=== PATIENT | female | born 1980 | race Caucasian/White ===

== ENCOUNTER → 2017-07-02 18:32 | Outpatient (CLI) | payer OTHER, SELFPAY ==
[2017-07-06 13:17] LABS: HPV Reflexed? NOT INDICATED
== END ==
PROVIDERS: Family Provider Nurse Practitioner Primary Care; PCP Nurse Practitioner Primary Care; Visit Provider Obstetrics & Gynecology
DX: Z12.4 Encounter for screening for malignant neoplasm of cervix (principal)
CPT/HCPCS: 88175; G0145

== ENCOUNTER → 2018-08-14 | Outpatient (CLI) | payer OTHER, SELFPAY ==
[2018-08-20 16:03] LABS: HPV HC, High Risk Negative (Negative)
== END | disposition home or self-care (01) ==
LOC: LABSPEC 10:40
PROVIDERS: Visit Provider Obstetrics & Gynecology
DX: Z12.4 Encounter for screening for malignant neoplasm of cervix (principal)
CPT/HCPCS: 87624; 88175; G0145

== ENCOUNTER → 2018-09-04 | Outpatient (CLI) | payer OTHER, SELFPAY ==
--- NOTE | 2018-09-04 15:54 | BI_ITS ---
MAMMOGRAPHY - BILATERAL SCREENING REASON FOR EXAM: Female, 38 years old. Routine annual screening examination. PERTINENT HISTORY: Non-contributory. TECHNIQUE: Digital bilateral breast altagracia (3D mammographic acquisition) in the CC and MLO projections. 2-D mediolateral oblique (MLO) and craniocaudad (CC) views of both breasts were obtained. CAD: Full Field Digital Mammography with Computer Added Detection was performed. COMPARISON: Comparison is made with prior examination dated October 22, 2013. FINDINGS: Breast Composition: The breasts are heterogeneously dense, which may obscure small masses. There are no dominant masses or suspicious calcifications. No other significant abnormalities are identified. There has been no significant change since the prior study. BI/SCREEN MAMM (CAD) W/ALTAGRACIA BILAT IMPRESSION: Stable bilateral screening mammogram. Yearly follow-up mammogram recommended. (A) ASSESSMENT CATEGORY: BIRADS Category 1: Negative. A letter regarding these results will be sent to the patient by the facility within 30 days. Approximately 10% of breast cancers are not detected by mammography. A normal mammogram should not delay biopsy of a clinically suspicious abnormality. [id number] Electronically Signed: Darius Marshall, at 8:42 EDT , Service support ,
== END | disposition home or self-care (01) ==
LOC: OPBI 15:52
PROVIDERS: Family Provider Nurse Practitioner Primary Care; PCP Nurse Practitioner Primary Care; Referring Provider Obstetrics & Gynecology; Visit Provider Obstetrics & Gynecology
DX: Z12.31 Encounter for screening mammogram for malignant neoplasm of breast (principal)
CPT/HCPCS: 77063; 77067

== ENCOUNTER → 2019-09-17 14:12 | Outpatient (CLI) | payer OTHER, SELFPAY ==
[2019-09-17 17:13] LABS: Chlamydia Trachomatis by PCR Negative (Negative); Neisserai gonorrhoeae by PCR Negative (Negative); Probe Check PASS; Sample Adequacy Control PASS; Specimen Processing Control PASS
[2019-09-24 00:41] LABS: HPV APTIMA, High Risk Negative (Negative); HPV Reflexed? NOT INDICATED
== END ==
PROVIDERS: PCP Nurse Practitioner Primary Care; Visit Provider Obstetrics & Gynecology
DX: Z12.4 Encounter for screening for malignant neoplasm of cervix (principal); Z11.3 Encounter for screening for infections with a predominantly sexual mode of transmission
CPT/HCPCS: 87491; 87591; 88175; G0145

== ENCOUNTER → 2019-11-19 14:11 | Outpatient (CLI) | payer OTHER, SELFPAY ==
--- NOTE | 2019-11-19 14:55 | BI_ITS ---
MAMMOGRAPHY - BILATERAL SCREENING REASON FOR EXAM: Female, 39 years old. Routine annual screening examination. PERTINENT HISTORY: Non-contributory. TECHNIQUE: Digital bilateral breast altagracia (3D mammographic acquisition) in the CC and MLO projections. 2-D mediolateral oblique (MLO) and craniocaudad (CC) views of both breasts were obtained. CAD: Full Field Digital Mammography with Computer Added Detection was performed. COMPARISON: Comparison is made with prior study dated 09/04/2018. FINDINGS: Breast Composition: The breasts are heterogeneously dense, which may obscure small masses. There are no dominant masses or suspicious calcifications. No other significant abnormalities are identified. There has been no significant change since the prior study. BI/SCREEN MAMM (CAD) W/ALTAGRACIA BILAT IMPRESSION: Stable bilateral screening mammogram. Yearly follow-up mammogram recommended. (A) ASSESSMENT CATEGORY: BIRADS Category 1: Negative. A letter regarding these results will be sent to the patient by the facility within 30 days. Approximately 10% of breast cancers are not detected by mammography. A normal mammogram should not delay biopsy of a clinically suspicious abnormality. [id number] Electronically Signed: Darius Marshall, at 8:51 EDT , Service support ,
== END ==
PROVIDERS: PCP Nurse Practitioner Primary Care; Referring Provider Obstetrics & Gynecology; Visit Provider Obstetrics & Gynecology
DX: Z12.31 Encounter for screening mammogram for malignant neoplasm of breast (principal)
CPT/HCPCS: 77063; 77067

== ENCOUNTER 2020-09-08 12:17 | Emergency (ER) | payer OTHER, SELFPAY ==
[2020-09-08 12:17] VITALS: BP 147/82; PULSE 90; RESP 18; TEMP 36.6; O2SAT 99; BMI 25.8
--- NOTE | 2020-09-08 14:30 | VDLE_ITS ---
Reason For Study: Pain Procedure LEFT This is a venous duplex using B-mode, color GSV is normal. flow and spectral Doppler. CFV is compressible, spontaneous, phasic, Exam performed portable in ED. competent, and demonstrates normal A preliminary report was called and/or faxed augmentation. to [facility]. FV is compressible, spontaneous, phasic, competent and demonstrates normal augmentation. POP V is compressible, spontaneous, phasic, competent and demonstrates normal augmentation. T/P Trunk is compressible. PTV is compressible. LT PerV is compressible. VL/Venous Duplex US, Unilateral Interpretation Summary There is no evidence of left lower extremity deep vein thrombosis. Left great s aphenous vein appears patent and compressible segmentally. Ordering Physician: Rogelio Stephenson Referring Physician: Stephanie Harley Performed By: Letty Wyatt RVT
--- NOTE | 2020-09-08 14:47 | EDS_ITS ---
HPI History of Present Illness Chief Complaint: Lower Extremity Injury Informant: patient Narrative Narrative: 40-year-old female presents for the evaluation of left calf pain. Patient states that she noticed some pain behind her knee/proximal calf the past couple of days. She notes that yesterday the knee seems stiffer going upstairs. She called her doctor's office today and they recommend she come to emergency for ultrasound to rule out DVT. No known trauma. Patient notes that she is a smoker and on hormonal therapy (Implanon) PFSH PFSH no medical history Home Medications etonogestrel [Implanon] mg SUBDERMAL 09/08/20 [History Last Taken Unknown] fluoxetine 50 mg PO DAILY 09/08/20 [History Last Taken Unknown] Allergy/AdvReac Type Severity Reaction Status Date / Time No Known Allergies Allergy Verified 09/08/20 12:20 Social History (Updated 09/08/20 @ 14:[address] Rogelio Stephenson, DO) Smoking Status: Current every day smoker tobacco type: cigarettes and e- cigarettes substance use type: does not use ROS ROS ED Constitutional Constitutional ED: Denies chills or weight loss Eyes Eyes: Denies change in vision or diplopia ENT ENT ED: Denies ear pain, rhinorrhea or sore throat Cardiovascular Cardiovascular: Denies chest pain, orthopnea, palpitations or racing heartbeat Respiratory/Chest Respiratory/Chest: Denies cough, dyspnea or orthopnea Gastrointestinal Gastrointestinal: Denies abdominal pain, diarrhea, nausea or vomiting Genitourinary Genitourinary ED: Denies dysuria, hematuria or urinary frequency Musculoskeletal Musculoskeletal: Reports other Details: See history of present illness ; Denies arthralgias or myalgias Integumentary Denies abscess or rash Neurologic Neurologic: Denies headache(s) or weakness Psychiatric Psychiatric: Denies anxiety, depression, suicidal ideation or suicidal thoughts Endocrine Endocrinology: Denies polydipsia, polyphagia or polyuria Allergic/Immunologic Allergic/Immunologic ED: Denies mouth swelling, tongue swelling or urticaria EXAM Physical Exam Const Vital Signs: 09/08/20 12:17 Temperature 97.9 F Temperature Source Temporal Pulse Rate 90 Respiratory Rate 18 Blood Pressure 147/82 H Blood Pressure Mean 103 Pulse Ox 99 Oxygen Delivery Method Room Air Positive well nourished and well developed General Appearance ED: well developed HEENT Reports normocephalic, head/scalp atraumatic and moist mucous membranes Eyes PERRL and EOMs intact bilaterally Neck no lymphadenopathy, supple and no JVD Resp normal respiratory effort and clear to auscultation bilaterally Cardio regular rate, regular rhythm and no murmurs GI normal to inspection, nondistended, normoactive bowel sounds and non-tender Palpation: soft Back/Spine no CVA tenderness and normal ROM Extremity Extremity Narrative: Patient reports mild tenderness to palpation in the posterior aspect of the knee and the proximal left calf. No significant swelling noted. No palpable cords. General Extremety ED: Negative for edema General Extremity: Negative for edema Neuro oriented x3 and CN's II-XII intact bilaterally Sensorium / Orientation: alert Motor Exam: strength 5/5 throughout Psych mental status grossly normal Mood & Affect: Negative for depressed or tearful Skin no rashes or lesions noted and no wounds MDM MDM MDM Narrative Medical decision making narrative: Duplex ultrasound was negative for DVT and Olson's cyst. Patient will be discharged home instructions for rest heat to the area. Tylenol Motrin for pain. Follow-up primary care if not improving Discharge Plan Triage Chief Complaint: Lower Extremity Injury ED Provider: Rogelio Stephenson Dx/Rx/DC Orders Clinical Impression: Pain of left calf Instructions: ED Pain, Acute, Uncertain Cause Prescriptions: No Action fluoxetine 20 mg capsule 50 mg PO DAILY RF: 0 Implanon 68 mg Implant SUBDERMAL RF: 0 Primary Care Provider: Stephanie Harley NP Referrals: Stephanie Harley NP, ALLERGY SPECIALIST-C [Primary Care Provider] - 1 Week if not improving Disposition Disposition: Home, self care Discharge Date/Time: 09/08/20 15:11
== END 2020-09-08 15:11 | disposition home or self-care (01) ==
PROVIDERS: Emergency Provider Emergency Medicine; PCP Nurse Practitioner Primary Care
DX: M79.662 Pain in left lower leg (principal); F17.210 Nicotine dependence, cigarettes, uncomplicated; Z79.899 Other long term (current) drug therapy
CPT/HCPCS: 93971; 99282

== ENCOUNTER → 2020-12-15 14:59 | Outpatient (CLI) | payer OTHER, SELFPAY ==
--- NOTE | 2020-12-15 15:01 | BI_ITS ---
MAMMOGRAPHY - BILATERAL SCREENING REASON FOR EXAM: Female, 40 years old. Routine annual screening examination. PERTINENT HISTORY: Non-contributory. TECHNIQUE: Digital bilateral breast altagracia (3D mammographic acquisition) in the CC and MLO projections. 2-D mediolateral oblique (MLO) and craniocaudad (CC) views of both breasts were obtained. CAD: Full Field Digital Mammography with Computer Added Detection was performed. COMPARISON: Comparison is made with prior study dated 11/19/2019 and 09/04/2018. FINDINGS: Breast Composition: The breasts are heterogeneously dense, which may obscure small masses. There are no dominant masses or suspicious calcifications. No other significant abnormalities are identified. There has been no significant change since the prior study. BI/SCRN MAMM (CAD)W/ALTAGRACIA BILAT IMPRESSION: Stable bilateral screening mammogram. Yearly follow-up mammogram recommended. (A) ASSESSMENT CATEGORY: BIRADS Category 1: Negative. A letter regarding these results will be sent to the patient by the facility within 30 days. Approximately 10% of breast cancers are not detected by mammography. A normal mammogram should not delay biopsy of a clinically suspicious abnormality. [id number] Electronically Signed: Darius Marshall MD at 8:35 EDT , Service support ,
== END ==
PROVIDERS: PCP Nurse Practitioner Primary Care; Referring Provider Obstetrics & Gynecology; Visit Provider Obstetrics & Gynecology
DX: Z12.31 Encounter for screening mammogram for malignant neoplasm of breast (principal)
CPT/HCPCS: 77063; 77067

== ENCOUNTER → 2021-12-07 | Outpatient (CLI) | payer OTHER, SELFPAY ==
[2021-12-14 10:45] LABS: HPV APTIMA, High Risk Negative (Negative)
== END | disposition home or self-care (01) ==
LOC: LABSPEC 14:08
PROVIDERS: PCP Nurse Practitioner Primary Care; Visit Provider Student in an Organized Health Care Education/Training Program
DX: Z12.4 Encounter for screening for malignant neoplasm of cervix (principal)
CPT/HCPCS: 87624; 88175; G0145

== ENCOUNTER → 2021-12-21 | Outpatient (CLI) | payer OTHER, SELFPAY ==
--- NOTE | 2021-12-21 10:28 | BI_ITS ---
MAMMOGRAPHY - BILATERAL SCREENING 3-D TOMOSYNTHESIS REASON FOR EXAM: Female, 41 years old. SCREENING PERTINENT HISTORY: No significant family history. TECHNIQUE: 2-D mammograms and 3-D Tomosynthesis of the breast (s) were performed. CAD was performed. COMPARISON: 12/15/2020 FINDINGS: The breast composition is heterogeneously dense that can obscure small breast masses. Scattered benign calcifications are seen. No dense spiculated masses or suspicious microcalcifications are identified. No architectural distortion is identified. There is no skin thickening or retraction. There has been no significant change since the prior study. BI/SCRN MAMM (CAD)W/ALTAGRACIA BILAT IMPRESSION: No mammographic signs of malignancy. Routine yearly mammograms recommended. ASSESSMENT CATEGORY: BIRADS Category 1: Negative. A letter regarding these results will be sent to the patient by the facility within 30 days. FOLLOW UP RECOMMENDATION: Yearly follow up mammogram recommended. (A) Approximately 10% of breast cancers are not detected by mammography. A normal mammogram should not delay biopsy of a clinically suspicious abnormality. Electronically Signed: Rakesh Branch MD at 8:51 EDT ,
== END | disposition home or self-care (01) ==
LOC: OPBI 10:27
PROVIDERS: PCP Nurse Practitioner Primary Care; Visit Provider Student in an Organized Health Care Education/Training Program
DX: Z12.31 Encounter for screening mammogram for malignant neoplasm of breast (principal)
CPT/HCPCS: 77063; 77067

== ENCOUNTER → 2023-03-27 | Outpatient (CLI) | payer OTHER, SELFPAY ==
--- NOTE | 2023-03-27 15:44 | BI_ITS ---
MAMMOGRAPHY - BILATERAL SCREENING 3-D TOMOSYNTHESIS REASON FOR EXAM: Female, 42 years old. Routine annual screening mammogram. PERTINENT HISTORY: No significant family history. TECHNIQUE: 2-D mammograms and 3-D Tomosynthesis of the breast (s) were performed. CAD was performed. COMPARISON: December 21, 2021, December 15, 2020 FINDINGS: The breast composition is composed of scattered fibroglandular density. No dominant masses, suspicious microcalcifications, asymmetries, skin thickening or nipple retraction . BI/SCRN MAMM (CAD)W/ALTAGRACIA BILAT IMPRESSION: No interval change and no mammographic signs of malignancy. Routine yearly mammogram recommended. ASSESSMENT CATEGORY: BIRADS Category 2: Benign. A letter regarding these results will be sent to the patient by the facility within 30 days. FOLLOW UP RECOMMENDATION: Yearly follow up mammogram recommended. (A) Approximately 10% of breast cancers are not detected by mammography. A normal mammogram should not delay biopsy of a clinically suspicious abnormality. Electronically Signed: Sean Rae MD at 9:38 EST ,
--- OUTSIDE RECORDS SUMMARY | 2023-03-27 16:03 | XMS RPT_ITS | CCD ---
Author Name Unknown Address [facility] [address] [place] [address] Organization [facility] Care Team Providers Care Junior Manufacturing Engineer Name Role Phone Unavailable Primary Care Provider Unavailabl e Medications Completed/Discontinued Medications Medication Drug Class(es) Dates Sig (Normalized) Sig (Original) etonogestrel 68 mg drug implant (2 sources) Progestin etonogestrel (NEXPLANON) subdermal implant 68 mg 68 mg by SUBDERMAL route. 0 Active Results Test Name Value Interpretation Reference Range Facil ity Encounters Encounter Date Encounter Type Care Provider Facility Start: 02-28-2023 ambulatory Gonzalez P Kaylee r SUPPORT SERVICES MANAGER.TRUCK DRIVER INSTRUCTOR Work Phone: [facility] Provider Adult Start: 01-03-2023 ambulatory Gonzalez P Sadie r SUPPORT SERVICES MANAGER.TRUCK DRIVER INSTRUCTOR Work Phone: Psychiatry Plan of Treatment Date Care Activity Detail Author Start: 03-15-2025 Urine microalbumin profile DTaP,Tdap,Td Vaccine (3 - Td or Tdap) [facility] Start: 11-29-2022 Covid-19 Vaccine ( season) Covid-19 Vaccine ( season) [facility] Start: 11-29-2022 Influenza vaccination Influenza Vacc ine (#1) [facility] Start: 03-31-2022 Depression Assessment Depression Ass essment [facility] Start: 04-30-2021 Covid-19 Vaccine (3 - Moderna series) Covid-19 Vaccine (3 - Moderna series) [facility] Start: 2019 Mammography Mammogram Screening [facility] Start: 07-01-2009 HPV Testing HPV Testing [facility] Start: 07-01-2000 Pap Testing Pap Testing [facility] Start: 07-01-1998 Urine microalbumin profile DTaP,Tdap,Td Vaccine (1 - Tdap) [facility] Start: 09-27-1997 Hepatitis B Vaccine (2 of 3 - 3-dose series) Hepatitis B Vaccine (2 of 3 - 3-dose series) [facility] Start: 07-01-1997 Hepatitis C Screening Hepatitis C Sc reening [facility] Start: 07-01-1997 HIV Screening HIV Screening [facility] Start: 07-01-1985 Pneumococcal vaccination Pneum ococcal Vaccine (1 - PCV) [facility] Start: 1979 Hepatitis B Vaccine (1 of 3 - 3-dose series) Hepatitis B Vaccine (1 of 3 - 3-dose series) [facility] Immunizations Immunization Date Immunization Notes Care Provider Fa cility 12-13-2020 influenza virus vacc ine, unspecified formulation Gonzalez Cohen APRN.TRUCK DRIVER INSTRUCTOR Work Phone: [facility] 01-08-2020 influenza, injectabl e, quadrivalent, contains preservative Gonzalez Cohen APRN.TRUCK DRIVER INSTRUCTOR Work Phone: [facility] Payers Date Payer Category Payer Unknown MMO M[employer] PPO [id number] 2018-Present [phone] [address] [place] [address] PPO [id number] Social History Date Type Detail Facility Start: 02-08-2018 Tobacco smoking stat us ALIS Smokes tobacco daily [facility] Start: 02-08-2018 Tobacco use and exposure Smoke less tobacco non-user [facility] Start: 03-08-2020 End: 03-23-2021 History of Social function [facility] Start: 03-08-2020 End: 03-23-2021 Tobacco use panel [facility] National Score (1-10 0), lower number is lower risk Not on file [facility] Start: 1979 Sex Assigned At Not on file [facility] Progress note 02-28-2023 Note Date & Type Note Facility 02-28-2023 Note HNO ID: [id number] Author: Gonzalez Cohen APRN.CNP Service: ? Author Type: Nurse Practitioner Type: Progress Notes Filed: 02/28/2023 3:39 PM Note Text: Summary: ECT Treatment team update 02/28 Shraddha Diaz (Aquiles WOODRUFF @ external provider) - Main q 2wks, completes 03/11. Plan: Progress maintenance series to [id number] x4. Pt has been advised that in the event of a worsening of symptoms, a return to more frequent treatments is not recommended. [facility] History of Present illness Narrative 02-28-2023 Gonzalez Cohen APRN.CNP - 02/28/2023 3:36 PM EST Note Date & Type Note Facility 02-28-2023 History of Presen t illness Narrative Summary: ECT Treatment team update 02/28 Shraddha Diaz (Aquiles WOODRUFF @ external provider) - Main q 2wks, completes 03/11. Plan: Progress maintenance series to [id number] x4. Pt has been advised that in the event of a worsening of symptoms, a return to more frequent treatments is not recommended. documented in this encounter [facility] Progress note 01-03-2023 Note Date & Type Note Facility 01-03-2023 Note HNO ID: [id number] Author: Gonzalez Cohen APRN.CNP Service: ? Author Type: Nurse Practitioner Type: Progress Notes Filed: 01/03/2023 3:38 PM Note Text: Summary: ECT Treatment team update 01/03/23 Shraddha Diaz (Aquiles WOODRUFF @ external provider) - Main q wk, completes 01/07. Switched from biweekly to weekly on 11/26 d/t SI. Cx 12/17. Declines Spravato at this time, Aquiles WOODRUFF 12/12: ?taking Marinol with hopes to improve mood and associated symptoms?. Plan: Return to q2 weekly maintenance schedule starting with next treatment. Team will consider discontinuation and recommend Spravato is pt experiences a relapse in symptoms again [facility] History of Present illness Narrative 01-03-2023 Gonzalez Cohen APRN.CNP - 01/03/2023 3:36 PM EDT Note Date & Type Note Facility 01-03-2023 History of Presen t illness Narrative Summary: ECT Treatment team update 01/03/23 Shraddha Diaz (Aquiles WOODRUFF @ external provider) - Main q wk, completes 01/07. Switched from biweekly to weekly on 11/26 d/t SI. Cx 12/17. Declines Spravato at this time, Aquiles WOODRUFF 12/12: taking Marinol with hopes to improve mood and associated symptoms . Plan: Return to q2 weekly maintenance schedule starting with next treatment. Team will consider discontinuation and recommend Spravato is pt experiences a relapse in symptoms again documented in this encounter [facility] Progress note 03-23-2021 Note Date & Type Note Facility 03-23-2021 Note HNO ID: [id number] Author: Dayanna Seals APRN.[facility] Service: ? Author Type: Nurse Practitioner Type: Progress Notes Filed: 03/23/2021 8:41 AM Note Text: This note was created using NoteWriter. Subjective Shraddha Diaz is a 40 year old female. The history is provided by the patient. No language tutor was used. Cough This is a new problem. The current episode started more than 1 week ago (2 weeks ago ). The problem occurs constantly. The problem has not changed since onset.The cough is non-productive. There has been no fever. Associated symptoms include headaches, rhinorrhea and sore throat. Pertinent negatives include no ear congestion, no ear pain, no shortness of breath and no wheezing. Associated symptoms comments: - denies N/V/D - denies fever/chills + bilateral red, itchy eyes with discharge - rapid test x 2 last week negative . She has tried decongestants for the symptoms. She is not a smoker. Her past medical history does not include COPD or asthma. Review of Systems HENT: Positive for rhinorrhea and sore throat. Negative for ear pain. Respiratory: Positive for cough. Negative for shortness of breath and wheezing. Neurological: Positive for headaches. HISTORIES No past medical history on file. No past surgical history on file. No family history on file. Social History Tobacco Use - Smoking status: Current Every Day Smoker - Smokeless tobacco: Never Used Substance Use Topics - Alcohol use: Not on file - Drug use: Not on file Current Outpatient Medications on File Prior to Visit Medication Sig - FLUoxetine (PROZAC) 20 mg capsule Take 20 mg by mouth once daily. - etonogestrel (NEXPLANON) subdermal implant 68 mg 68 mg by SUBDERMAL route. No current facility-administered medications on file prior to visit. ALLERGIES No Known Allergies DEPRESSION SCREENING Never done HEPATITIS C SCREENING Never done HIV SCREENING Never done DTAP,TDAP,TD(1 - Tdap) Never done PAP TESTING Never done HPV TESTING Never done MAMMOGRAM Never done I have confirmed and edited as necessary, the PFSH and ROS obtained by others. Objective BP 128/78 Pulse 97 Temp 36.4 ?C (97.5 ?F) Resp 16 Wt 76.2 kg (168 lb) SpO2 98% Physical Exam Vitals and nursing note reviewed. Constitutional: General: She is not in acute distress. HENT: Head: Normocephalic. Right Ear: Tympanic membrane, ear canal and external ear normal. Left Ear: Tympanic membrane, ear canal and external ear normal. Nose: Mucosal edema present. Mouth/Throat: Mouth: Mucous membranes are moist. Pharynx: Oropharynx is clear. Eyes: General: Left eye: Discharge present. Conjunctiva/sclera: Right eye: Right conjunctiva is injected. Left eye: Left conjunctiva is injected. Cardiovascular: Rate and Rhythm: Normal rate and regular rhythm. Pulmonary: Effort: Pulmonary effort is normal. Breath sounds: Normal breath sounds. Neurological: Mental Status: She is alert. Psychiatric: Behavior: Behavior is cooperative. ASSESSMENT/PLAN: 1. Acute sinusitis, recurrence not specified, unspecified location - ICD9: 461.9, ICD10: J01.90 (primary diagnosis) - Supportive care with plenty of fluids, rest, and analgesia prn. - AMOXICILLIN 875 MG TABLET 2. Bacterial conjunctivitis - ICD9: 372.39, 041.9, ICD10: H10.9 - see medication orders - course and contagiousness issues discussed, including hand washing. - Instructed to call if high fever, development of periorbital redness or swelling, eye pain, visual changes, concerns or if symptoms persist. - TOBRAMYCIN 0.3 % EYE DROPS -pt education along with discharge instructions given to pt -pt agreeable with plan -follow-up if symptoms don't improve in 3-5 days or get worse Dayanna Seals APRN.[facility] Summary Purpose Family History No Family History Records FoundNo Family History Records Found Advance Directives No Advanced Directives Records FoundNo Advanced Directives Records Found Additional Source Comments INFORMATION SOURCE (unrecogn ized section and content) DATE CREATED AUTHOR AUTHOR'S ORGANIZ ATION 03/03/2023 [facility] Source Comments (unrecognize d section and content) In the event this informatio n is protected by the Federal Confidentiality of Alcohol and Drug Abuse Patient Records regulations: The Federal rules restrict any use of the information to criminally investigate or prosecute any alcohol or drug abuse patient.[facility] the event this information is protected by the Federal Confidentiality of Alcohol and Drug Abuse Patient Records regulations: The Federal rules restrict any use of the information to criminally investigate or prosecute any alcohol or drug abuse patient.[facility] FOR RECORDS PERTAINING TO PATIENTS WHO ARE OR HAVE BEEN ENROLLED IN A CHEMICAL DEPENDENCY/SUBSTANCEABUSE PROGRAM, SOME INFORMATION MAY BE OMITTED. This clinical summary was aggregated from multiple sources. Caution should be exercised in using it in the provision of clinical care. This summary normalizes information from multiple sources, and as a consequence, information in this document may materially change the coding, format and clinical context of patient data. In addition, data may be omitted in some cases. CLINICAL DECISIONS SHOULD BE BASED ON THE PRIMARY CLINICAL RECORDS. [facility] [employer] [facility]. provides no warranty or guarantee of the accuracy or completeness of information in this document.
== END | disposition home or self-care (01) ==
LOC: OPBI 15:42
PROVIDERS: PCP Nurse Practitioner Primary Care; Referring Provider Nurse Practitioner Primary Care; Visit Provider Nurse Practitioner Primary Care
DX: Z12.31 Encounter for screening mammogram for malignant neoplasm of breast (principal)
CPT/HCPCS: 77063; 77067